=== PATIENT | female | born 1955 | race Caucasian/White ===

== ENCOUNTER 2019-02-04 09:48 | Outpatient (CLI) | payer OTHER ==
[~2019-02-04 09:48] MED LIST: CATAFLAM50 MG PO; CYCLOBENZAPRINE10 MG PO; ORPH100T PO
== END 2019-02-04 09:50 | disposition home or self-care (01) ==
LOC: RAD 09:48
DX: M25.561 Pain in right knee (principal); M25.562 Pain in left knee

== ENCOUNTER 2020-01-20 14:23 | Outpatient (CLI) | payer OTHER | END 2020-01-20 14:37 | disposition home or self-care (01) | LOC: RAD 14:23 | PROVIDERS: ATTEND General Practice | DX: R07.89 Other chest pain (principal) ==

== ENCOUNTER 2020-08-28 14:13 | Emergency (ER) | payer OTHER ==
[~2020-08-28] VITALS: Ht 162.6 cm; Wt 68.0 kg
[2020-08-28] MEDS ORDERED: MEDROLPACK PO (18:09)
[2020-08-28] MEDS ORDERED: NORFLEX100MG PO (18:09)
[2020-08-28] MEDS ORDERED: KETO10TA2 PO (18:09)
== END 2020-08-28 18:11 | disposition home or self-care (01) ==
LOC: ER 14:13
DX: M75.31 Calcific tendinitis of right shoulder (principal); M25.511 Pain in right shoulder